=== PATIENT | male | born 1960 | race Caucasian/White ===

== ENCOUNTER 2019-10-26 06:02 | Day surgery (SDC) | payer MEDICARE, OTHER ==
[~2019-10-26] VITALS: Ht 188 cm; Wt 105.0 kg
[~2019-10-26 06:02] MED LIST: BACL20 PO; GABA800 PO; Naproxen375 MG PO; OMEP20ER PO; PRAV20 PO; Prinivil10 MG PO; TRAZ100 PO
[2019-10-26] MEDS ORDERED: CLOP75 PO (08:50)
--- NOTE | 2019-10-26 11:07 | NUR ---
PT UP TO BATHROOM, GROIN SITES STABLE. PT ALERT AND TALKING WITH STAFF.
--- NOTE | 2019-10-26 11:17 | NUR ---
DISCHARGE GIVEN TO PT, PT VERBALIZES UNDERSTANDING OF INSTRUCTIONS. BILATERAL GROIN SITES STABLE.
--- NOTE | 2019-10-26 11:25 | NUR ---
PT SALINE LOCK OUT WITH CATHETER INTACT. DRESSED PER SELF. GROIN SITES STABLE. PT TO BATHROOM BEFORE DISCHARGE. PT TO [facility] SERVICE WITH ONE STAFF.
== END 2019-10-26 12:00 | disposition home or self-care (01) ==
LOC: MHTC 06:02
DX: T82.856A Stenosis of peripheral vascular stent, initial encounter (principal); I70.213 Atherosclerosis of native arteries of extremities with intermittent claudication, bilateral legs; I10 Essential (primary) hypertension; J45.909 Unspecified asthma, uncomplicated; G89.29 Other chronic pain; M19.90 Unspecified osteoarthritis, unspecified site; Z88.5 Allergy status to narcotic agent; Z88.6 Allergy status to analgesic agent; Z79.899 Other long term (current) drug therapy
CPT/HCPCS: 37220; 75716; 75774; 85347; 99152; 99153; C1725; C1760; C1769; C1887; C1894; J1644; J2250; J3010; J7030; Q9967

== ENCOUNTER 2019-11-13 12:57 | Emergency (ER) | payer MEDICARE, OTHER ==
[~2019-11-13] VITALS: Ht 190.5 cm; Wt 104.3 kg
[~2019-11-13 12:57] MED LIST changes: +CLOP75 PO
== END 2019-11-13 15:49 | disposition left against medical advice (07) ==
LOC: ER 12:57
DX: Z53.21 Procedure and treatment not carried out due to patient leaving prior to being seen by health care provider (principal)
CPT/HCPCS: 99281

== ENCOUNTER 2019-11-20 01:53 | Emergency (ER) | payer MEDICARE, OTHER ==
[2019-11-20] MEDS ORDERED: HYDPAM25 PO (02:12)
[2019-11-20] MEDS ORDERED: METPRE4DP PO (02:12)
== END 2019-11-20 02:54 | disposition home or self-care (01) ==
DX: L50.0 Allergic urticaria (principal); T78.40XA Allergy, unspecified, initial encounter; G62.9 Polyneuropathy, unspecified; Z87.891 Personal history of nicotine dependence

== ENCOUNTER → 2019-12-11 | Outpatient (CLI) | payer MEDICARE, OTHER ==
[~2019-12-11] MED LIST changes: +HYDPAM25 PO; +METPRE4DP PO
== END | disposition home or self-care (01) ==
LOC: LAB 18:40 → LAB SHORT 18:40
DX: M86.171 Other acute osteomyelitis, right ankle and foot (principal); L97.512 Non-pressure chronic ulcer of other part of right foot with fat layer exposed; I70.291 Other atherosclerosis of native arteries of extremities, right leg
CPT/HCPCS: 87070; 87205

== ENCOUNTER 2019-12-24 11:14 | Emergency (ER) | payer MEDICARE, OTHER ==
[~2019-12-24] VITALS: Ht 188 cm; Wt 106.6 kg
[~2019-12-24 11:14] MED LIST changes: -BACL20 PO; -CLOP75 PO; -GABA800 PO; -Naproxen375 MG PO; -PRAV20 PO; -TRAZ100 PO
[2019-12-24 11:59] LABS: BASOPHILS ABSOLUTE AUTO 0.04 K/mm3 (0.00-0.23); BASOPHILS PERCENT AUTO 1 % (0-2); EOSINOPHILS ABSOLUTE AUTO 0.22 K/mm3 (0.00-0.68); EOSINOPHILS PERCENT AUTO 3 % (0-6); Hematocrit 39.6 % (37.0-53.0); Hemoglobin 12.2 g/dL (13.5-17.5); IMMATURE GRAN ABSOLUTE AUTO 0.03 K/mm3 (0.00-0.10); IMMATURE GRAN PERCENT AUTO 0 % (0-1); LYMPHOCYTES ABSOLUTE AUTO 1.91 K/mm3 (0.84-5.20); LYMPHOCYTES PERCENT AUTO 22 % (21-46); MONOCYTES ABSOLUTE AUTO 0.73 K/mm3 (0.16-1.47); MONOCYTES PERCENT AUTO 9 % (4-13); Mean Corpuscular HGB 27.4 pg (26.0-34.0); Mean Corpuscular HGB Conc 30.8 g/dL (31.5-36.5); Mean Platelet Volume 10.4 fL (9.1-12.4); NEUTROPHILS ABSOLUTE AUTO 5.64 K/mm3 (1.96-9.15); NEUTROPHILS PERCENT AUTO 66 % (41-73); Platelet Count 227 K/mm3 (150-400); RDW Coefficient Variation 15.4 % (11.7-14.2); RDW Standard Deviation 50.6 fL (35.1-46.3); Red Blood Cell Count 4.45 M/mm3 (4.30-5.90); White Blood Cell Count 8.57 K/mm3 (4.00-11.30)
[2019-12-24 12:18] LABS: Albumin/Globulin Ratio 0.8 (0.8-1.8); Bilirubin, Total 0.5 mg/dL (0.1-1.0); Bun/Creatinine Ratio 19.5 (12.0-20.0); Calcium, Blood 9.1 mg/dL (8.5-10.1); Creatinine, Blood 1.54 mg/dL (0.60-1.20); Globulin, Blood 4.8 g/dL (2.2-4.0); Mean Corpuscular Volume 89 fL (80-100); Potassium, Blood 4.3 mmol/L (3.5-5.5); Total Protein, Blood 8.8 g/dL (6.4-8.2)
[2019-12-24] MEDS ORDERED: GABA800 PO (13:13)
[2019-12-24] MEDS ORDERED: Pravachol40 MG PO (13:14)
[2019-12-24] MEDS ORDERED: BACL20 PO (13:14)
[2019-12-24] MEDS ORDERED: CLOP75 PO (13:14)
[2019-12-24] MEDS ORDERED: TRAZ100 PO (13:15)
[2019-12-24] MEDS ORDERED: AMLODIPINE BESY10 MG PO (13:16)
[2019-12-24] MEDS ORDERED: LOSARTAN POTAS100 M1 PO (13:16)
[2019-12-24] MEDS ORDERED: Amitriptyline100 MG PO (13:17)
[2019-12-24 13:23] LABS: Body Fluid Crystals NEG (NEGATIVE); WBC Count, Synovial Fluid 481 /mm3 (0-180)
[2019-12-24 13:30] LABS: Glucose, Body Fluid 30 mg/dL; Protein, Body Fluid 3.3 g/dL
[2019-12-24] MEDS ORDERED: Naproxen375 MG PO (13:45)
[2019-12-24 13:54] LABS: Appearance, Synovial Fluid Hazy (Clear); Color, Synovial Fluid Yellow (None-P Yel); RBC Count, Synovial Fluid 393 /mm3 (0-0)
[2019-12-24 13:58] LABS: Lymphs, Synovial Fluid 8 % (0-15); Monocytes/Macrophages, Synovia 61 % (0-65); Neutrophils, Synovial Fluid 31 % (0-24)
[2019-12-24] MEDS ORDERED: Bactrim Ds Tab1 EACH PO (14:16)
[2019-12-24] MEDS ORDERED: HYDR1TAB94 PO (14:16)
== END 2019-12-24 14:52 | disposition home or self-care (01) ==
LOC: ER 11:14
PROVIDERS: Emergency Medicine; Physician Assistant
DX: M70.41 Prepatellar bursitis, right knee (principal); Z88.5 Allergy status to narcotic agent; Z79.899 Other long term (current) drug therapy; F17.210 Nicotine dependence, cigarettes, uncomplicated
CPT/HCPCS: 20610; 36415; 80053; 82945; 83605; 84157; 85025; 89051; 89060; 96365-59; 99283-25; J0696

== ENCOUNTER → 2019-12-28 | Outpatient (CLI) | payer MEDICARE, OTHER ==
[~2019-12-28] MED LIST changes: +AMLODIPINE BESY10 MG PO; +Amitriptyline100 MG PO; +BACL20 PO; +Bactrim Ds Tab1 EACH PO; +CLOP75 PO; +GABA800 PO; +HYDR1TAB94 PO; +LOSARTAN POTAS100 M1 PO; +Naproxen375 MG PO; +Pravachol40 MG PO; +TRAZ100 PO
== END | disposition home or self-care (01) ==
LOC: LAB SHORT 16:00 → LAB 16:00
DX: I70.291 Other atherosclerosis of native arteries of extremities, right leg (principal); M79.671 Pain in right foot; M86.171 Other acute osteomyelitis, right ankle and foot; L97.512 Non-pressure chronic ulcer of other part of right foot with fat layer exposed
CPT/HCPCS: 87071; 87075; 87205

== ENCOUNTER 2022-11-19 17:11 | Emergency (ER) | payer OTHER ==
[~2022-11-19] VITALS: Ht 188 cm; Wt 101.2 kg
[2022-11-19 17:26] VITALS: BP 129/78
== END 2022-11-19 23:24 | disposition home or self-care (01) ==
LOC: ER 17:11
DX: S91.114A Laceration without foreign body of right lesser toe(s) without damage to nail, initial encounter (principal); W22.8XXA Striking against or struck by other objects, initial encounter; Z88.5 Allergy status to narcotic agent; Z79.899 Other long term (current) drug therapy; I10 Essential (primary) hypertension; M06.9 Rheumatoid arthritis, unspecified; F17.210 Nicotine dependence, cigarettes, uncomplicated
CPT/HCPCS: 12002; 73630; 99283-25

== ENCOUNTER 2023-11-02 16:02 | Emergency (ER) | payer OTHER ==
[~2023-11-02] VITALS: Ht 188 cm; Wt 99.8 kg
[2023-11-02 16:19] VITALS: BP 129/59
[2023-11-02 17:09] LABS: BASOPHILS ABSOLUTE AUTO 0.05 K/mm3 (0.00-0.23); BASOPHILS PERCENT AUTO 1 % (0-2); EOSINOPHILS ABSOLUTE AUTO 0.17 K/mm3 (0.00-0.68); EOSINOPHILS PERCENT AUTO 2 % (0-6); Hemoglobin 13.7 g/dL (13.5-17.5); IMMATURE GRAN ABSOLUTE AUTO 0.04 K/mm3 (0.00-0.10); IMMATURE GRAN PERCENT AUTO 1 % (0-1); LYMPHOCYTES ABSOLUTE AUTO 2.12 K/mm3 (0.84-5.20); LYMPHOCYTES PERCENT AUTO 26 % (21-46); MONOCYTES PERCENT AUTO 6 % (4-13); Mean Corpuscular HGB 29.5 pg (26.0-34.0); Mean Corpuscular HGB Conc 32.6 g/dL (31.5-36.5); Mean Corpuscular Volume 91 fL (80-100); NEUTROPHILS ABSOLUTE AUTO 5.31 K/mm3 (1.96-9.15); NEUTROPHILS PERCENT AUTO 65 % (41-73); RDW Coefficient Variation 14.7 % (11.7-14.2); RDW Standard Deviation 49.1 fL (35.1-46.3); Red Blood Cell Count 4.64 M/mm3 (4.30-5.90); White Blood Cell Count 8.19 K/mm3 (4.00-11.30)
[2023-11-02 17:21] LABS: Bilirubin, Total 0.3 mg/dL (0.1-1.0); Bun/Creatinine Ratio 17.9 (12.0-20.0); Calcium, Blood 9.5 mg/dL (8.5-10.1); Creatinine, Blood 1.12 mg/dL (0.60-1.20); Globulin, Blood 4.1 g/dL (2.2-4.0); Potassium, Blood 4.6 mmol/L (3.5-5.5); Total Protein, Blood 8.1 g/dL (6.4-8.2)
[2023-11-02 17:29] LABS: Mean Platelet Volume 10.8 fL (9.1-12.4); Platelet Count 166 K/mm3 (150-400)
== END 2023-11-02 20:45 | disposition home or self-care (01) ==
LOC: ER 16:02
PROVIDERS: Physician Assistant
DX: R51.9 Headache, unspecified (principal); Z88.5 Allergy status to narcotic agent; Z79.02 Long term (current) use of antithrombotics/antiplatelets; Z79.899 Other long term (current) drug therapy; I10 Essential (primary) hypertension; F17.210 Nicotine dependence, cigarettes, uncomplicated
CPT/HCPCS: 70450; 80053; 85025; 99284-25